=== PATIENT | male | born 1960 | race American Indian/Alaskan Native ===

== ENCOUNTER 2017-11-10 16:30 | Inpatient (IN) | payer MEDICARE ==
[2017-11-10] MEDS ORDERED: ZOFRAN ODT PO PRN (16:39)
[2017-11-10] MEDS ORDERED: TYLENOL PO PRN (16:39)
[2017-11-10] MEDS ORDERED: IMODIUM PO PRN (16:39)
[2017-11-10] MEDS ORDERED: ZOFRAN IV PRN (16:39)
[2017-11-10] MEDS ORDERED: ALUM-MAG HYDROX-SIMETH 200-200-20MG/5ML PO PRN (16:39)
[2017-11-10] MEDS ORDERED: DULCOLAX PR PRN (16:39)
[2017-11-10] MEDS ORDERED: SENOKOT PO PRN (16:39)
[2017-11-10] MEDS ORDERED: VISTARIL PO PRN (16:49)
[2017-11-10] MEDS ORDERED: CATAPRES PO PRN (16:49)
[2017-11-10] MEDS ORDERED: BENTYL PO PRN (16:49)
[2017-11-10] MEDS ORDERED: REQUIP PO PRN (16:49)
[2017-11-10] MEDS ORDERED: ROBAXIN PO PRN (16:49)
[2017-11-10] MEDS ORDERED: VISTARIL IM PRN (16:49)
[2017-11-10] MEDS ORDERED: ATIVAN IV ONE (17:05)
[2017-11-10] MEDS: LOVENOX SUB-Q SCH (17:30)
[2017-11-10] MEDS: NACL 0.9% 1000 ML 1,000 ML IV SCH (17:30)
[2017-11-10] MEDS ORDERED: HABITROL TD PRN (18:00)
[2017-11-10] MEDS: SUBUTEX SL SCH (18:13)
[2017-11-10 19:20] LABS: Mean Corpuscular HGB Conc 34 % (32-34); Mean Corpuscular Hemoglobin 32 pg (28-32); Mean Corpuscular Volume 94 fl (84-94); Platelet Count 251 K/mm3 (140-440); Red Blood Count 3.43 M/mm3 (3.65-5.03); Red Cell Distribution Width 14.5 % (13.2-15.2)
[2017-11-10 19:31] LABS: INR 1.11 (0.87-1.13)
[2017-11-10 19:49] LABS: Bilirubin,Urine NEG (Negative); Blood,Urine NEG (Negative); Color,Urine Amber (Yellow); Mucus,Urine 3+ /HPF; Urobilinogen,Urine < 2.0 mg/dL (<2.0)
[2017-11-10 19:57] LABS: Amphetamine Screen,Urine PRESUMPTIVE NEGATIVE; Benzodiazepines Screen,Urine PRESUMPTIVE NEGATIVE; Opiate Screen,Urine PRESUMPTIVE NEGATIVE
[2017-11-10 20:00] LABS: Alanine Aminotransferase 13 units/L (7-56); Albumin 3.7 g/dL (3.9-5); BUN/Creatinine Ratio 14; Blood Urea Nitrogen 14 mg/dL (9-20); Calcium 8.5 mg/dL (8.4-10.2); Hemolysis Index 0
[2017-11-10] MEDS ORDERED: VITAMIN B-1 100 MG, FOLVITE 1 MG, INFUVITE 10 ML in LACTATED RINGERS 1,000 ML IV ONE (20:00)
[2017-11-10 20:09] LABS: Cannabinoid Screen,Urine PRESUMPTIVE POSITIVE; Cocaine Screen,Urine PRESUMPTIVE POSITIVE; Methadone Screen,Urine PRESUMPTIVE POSITIVE
[2017-11-10] MEDS: DESYREL PO SCH (22:04)
[2017-11-11] MEDS: DESYREL PO SCH ×2 (00:45→22:50)
[2017-11-11] MEDS: SUBUTEX SL SCH ×2 (01:44→06:30)
--- NOTE | 2017-11-11 06:02 | Event Note ---
Date: 11/10/17 See dictated H/p in reports Mathadone withdrawal No comorbid factors
[2017-11-11] MEDS ORDERED: SODIUM CHLORIDE FLUSH SYRINGE 10 ML IV PRN (06:03)
[2017-11-11] MEDS ORDERED: TYLENOL PO PRN (06:03)
[2017-11-11] MEDS ORDERED: ZOFRAN IV PRN (06:03)
[2017-11-11] MEDS ORDERED: PHENERGAN PR PRN (06:03)
--- NOTE | 2017-11-11 06:46 | History and Physical Report ---
CHIEF COMPLAINT: Tremulousness and nervousness for 3-4 days. HISTORY OF PRESENT ILLNESS: A 57-year-old black male with dependence on methadone, who has been using up to 200 mg every morning of methadone, suddenly stopped using methadone 2 weeks ago cold turkey. Since then, the patient has been getting more nervous, tremulous, and restless. The patient has been using Percocet initially for his neck pain. He was using up to 90 tablets in a month. This was started on . After 2 or 3 years of Percocet, patient was changed to methadone. From the low dose of methadone, now patient is on methadone 200 mg everyday. The patient wanted to get off methadone and stop suddenly. The patient started having restlessness moderate tremors, sweating, and yawning. The patient also reports abdominal pain, chills, nausea, muscle aches, diarrhea, intense thirst, and weight loss. The patient is not homicidal. Not suicidal. The patient had a score of EDWAR is 17. The patient wants help with his withdrawal symptoms. Hence the admission. PAST MEDICAL HISTORY: Chronic pain secondary to C-spine surgery. No hypertension, no diabetes. PAST SURGICAL HISTORY: C-spine surgery. SOCIAL HISTORY: Does not smoke. Alcohol in moderation, very occasionally. Methadone 200 everyday. FAMILY HISTORY: Hypertension. REVIEW OF SYSTEMS: Significant for having diarrhea, intense thirst, weight loss, tremulousness, restlessness, sweating, and yawning. Otherwise, a 14-point review of systems negative. PHYSICAL EXAMINATION: GENERAL: A middle-aged male, cooperative during examination. States he feels better after being admitted and given IV fluids. VITAL SIGNS: Blood pressure is 126/82, temperature is 98.4, pulse is 59, respirations are 16, sats are 98%. HEENT: Unremarkable. Pupils equal and reactive. NECK: Supple, no lymphadenopathy, no thyromegaly. LUNGS: Clear to auscultation and percussion. Good air entry. CARDIOVASCULAR: S1, S2 heard. No gallop, no murmur, no rub. Apical impulse in left fifth intercostal space and midclavicular line. ABDOMEN: Soft and benign. No hepatosplenomegaly. No guarding, no rigidity. Hernial orifices are normal. EXTREMITIES: Good pedal pulses. No pedal edema. CENTRAL NERVOUS SYSTEM: The patient is very tremulous and nervous. Otherwise no focal deficits. SKIN: Normal. LABORATORY DATA: White count is 6100, H and H are 11.0 and 32.0. Albumin is 3.7. Urine is negative. Drug screen was positive for cocaine, marijuana, and methadone. ASSESSMENT AND PLAN: 1. Methadone dependence. The patient stopped 2 weeks ago cold turkey he says, but methadone is positive. Probably still in the half life of methadone, hence positive. The patient initiated on clonidine 0.1 q.12 p.r.n. for cold sweats, anxiety. Methocarbamol for muscle aches and dicyclomine for abdominal discomfort, ropinirole for restless legs, hydroxyzine for mild anxiety, hydroxyzine 50 for breakthrough anxiety. The patient is also started on Subutex taper 4 mg every 8 hours for 3 doses, then 2 mg every 8 hours for 3 doses and then 2 mg sublingual every 2 hours for 2 doses. Also, IV fluids. 2. Cocaine dependence. Continue the IV fluids and the same treatment of clonidine, methocarbamol, dicyclomine, ropinirole, and hydroxyzine. 3. Marijuana dependence. The patient counseled about it. 4. Deep venous thrombosis prophylaxis, Lovenox 40 mg subcutaneous daily, labs are normal. JOB# [id number] JAMESON/VASILE
[2017-11-11 06:59] LABS: Basophils % (Auto) 0.4 % (0.0-1.8); Eosinophils # (Auto) 0.1 K/mm3 (0.0-0.4); Eosinophils % (Auto) 1.9 % (0.0-4.3); Hematocrit 35.6 % (35.5-45.6); Hemoglobin 12.2 gm/dl (11.8-15.2); Lymphocytes # (Auto) 3.3 K/mm3 (1.2-5.4); Lymphocytes % (Auto) 45.1 % (13.4-35.0); Mean Corpuscular HGB Conc 34 % (32-34); Mean Corpuscular Hemoglobin 32 pg (28-32); Mean Corpuscular Volume 92 fl (84-94); Monocytes # (Auto) 0.5 K/mm3 (0.0-0.8); Monocytes % (Auto) 7.2 % (0.0-7.3); Platelet Count 262 K/mm3 (140-440); Red Blood Count 3.86 M/mm3 (3.65-5.03); Red Cell Distribution Width 14.9 % (13.2-15.2)
[2017-11-11 07:27] LABS: Alanine Aminotransferase 12 units/L (7-56); Albumin 3.3 g/dL (3.9-5); BUN/Creatinine Ratio 13; Blood Urea Nitrogen 12 mg/dL (9-20); Calcium 8.2 mg/dL (8.4-10.2); Hemolysis Index 8
[2017-11-11] MEDS ORDERED: K-DUR PO NR (07:42)
[2017-11-11] MEDS: VITAMIN B-1 PO SCH (09:23)
[2017-11-11] MEDS: PEPCID PO SCH ×2 (09:23→22:50)
[2017-11-11] MEDS: THERAGRAN Tab PO SCH (09:23)
[2017-11-11] MEDS: LOVENOX SUB-Q SCH (09:23)
[2017-11-11] MEDS: NACL 0.9% 1000 ML 1,000 ML IV SCH (09:27)
[2017-11-11] MEDS: SODIUM CHLORIDE FLUSH SYRINGE 10 ML IV SCH ×2 (09:37→22:52)
[2017-11-11] MEDS: FOLVITE PO SCH (09:38)
[2017-11-11] MEDS ORDERED: SUBUTEX SL ONE ×2 (10:00→17:30)
--- NOTE | 2017-11-11 11:52 | Progress Note ---
Assessment and Plan Assessment and plan: Patient is a 57 yo man with a history of chronic pain syndrome on large doses of Methodone who quit "cold turkey" per patient on October 30. He admits to using leftover percocet since then. He was direct admission to the [facility] under [facility] protocols. * UDS positive for methadone, cocaine and marijuana -Opiate withdrawal: continue Suboxone at 4mg, hold triation until tomorrow, d/w Melanin from [facility]. -Hypokalemia: replace potassium -Mild malnutrition: dietary supplements and 3 meals a day. -Poly substance abuse with cocaine, marijuana, methadone, his story doesn't add up bc he never mention using cocaine and why would he stop methadone and then go back to percocet when he was on Methadone for percocet addiction. -DVT prophylaxis: sq lovenox History Interval history: Patient was seen and examined. Follow-up on current diagnosis opiate withdrawal. Overnight uneventful. Patient denies any chest pain, shortness breath, nausea/vomiting or severe headaches. Imaging, nursing note, chart, labs and old chart reviewed. Discussed with patient. He is anxious especially before the next dose of Suboxone, will hold dose at 4mg today. Hospitalist Physical - Constitutional Vitals: Temp Pulse Resp BP Pulse Ox 97.7 F 56 L 16 118/82 100 11/11/17 08:00 11/11/17 09:55 11/11/17 09:55 11/11/17 08:00 11/11/17 09:55 Results - Labs CBC & Chem 7: 11/11/17 06:38 11/11/17 06:38 Labs: Laboratory Last Values WBC 7.4 K/mm3 (4.5-11.0) 11/11/17 06:38 RBC 3.86 M/mm3 (3.65-5.03) 11/11/17 06:38 Hgb 12.2 gm/dl (11.8-15.2) 11/11/17 06:38 Hct 35.6 % (35.5-45.6) 11/11/17 06:38 MCV 92 fl (84-94) 11/11/17 06:38 MCH 32 pg (28-32) 11/11/17 06:38 MCHC 34 % (32-34) 11/11/17 06:38 RDW 14.9 % (13.2-15.2) 11/11/17 06:38 Plt Count 262 K/mm3 (140-440) 11/11/17 06:38 Lymph % (Auto) 45.1 % (13.4-35.0) H 11/11/17 06:38 [place] % (Auto) 7.2 % (0.0-7.3) 11/11/17 06:38 Eos % (Auto) 1.9 % (0.0-4.3) 11/11/17 06:38 Baso % (Auto) 0.4 % (0.0-1.8) 11/11/17 06:38 Lymph # 3.3 K/mm3 (1.2-5.4) 11/11/17 06:38 [place] # 0.5 K/mm3 (0.0-0.8) 11/11/17 06:38 Eos # 0.1 K/mm3 (0.0-0.4) 11/11/17 06:38 Baso # 0.0 K/mm3 (0.0-0.1) 11/11/17 06:38 Seg Neutrophils % 45.4 % (40.0-70.0) 11/11/17 06:38 Seg Neutrophils # 3.4 K/mm3 (1.8-7.7) 11/11/17 06:38 PT 14.9 Sec. (12.2-14.9) 11/10/17 18:40 INR 1.11 (0.87-1.13) 11/10/17 18:40 Sodium 141 mmol/L (137-145) 11/11/17 06:38 Potassium 3.3 mmol/L (3.6-5.0) L 11/11/17 06:38 Chloride 104.1 mmol/L (98-107) 11/11/17 06:38 Carbon Dioxide 24 mmol/L (22-30) 11/11/17 06:38 Anion Gap 16 mmol/L 11/11/17 06:38 BUN 12 mg/dL (9-20) 11/11/17 06:38 Creatinine 0.9 mg/dL (0.8-1.5) 11/11/17 06:38 Estimated GFR > 60 ml/min 11/11/17 06:38 BUN/Creatinine Ratio 13 % 11/11/17 06:38 Glucose 92 mg/dL (75-100) 11/11/17 06:38 Hemoglobin A1c 5.5 % (4-6) 11/11/17 06:38 Calcium 8.2 mg/dL (8.4-10.2) L 11/11/17 06:38 Total Bilirubin 0.60 mg/dL (0.1-1.2) 11/11/17 06:38 AST 12 units/L (5-40) 11/11/17 06:38 ALT 12 units/L (7-56) 11/11/17 06:38 Alkaline Phosphatase 57 units/L (35-129) 11/11/17 06:38 Total Protein 5.9 g/dL (6.3-8.2) L 11/11/17 06:38 Albumin 3.3 g/dL (3.9-5) L 11/11/17 06:38 Albumin/Globulin Ratio 1.3 % 11/11/17 06:38 Amylase 66 units/L (27-131) 11/10/17 18:40 Lipase 23 units/L (13-60) 11/10/17 18:40 Urine Color [place] (Yellow) 11/10/17 19:17 Urine Turbidity Clear (Clear) 11/10/17 19:17 Urine pH 6.0 (5.0-7.0) 11/10/17 19:17 Ur Specific [place] 1.025 (1.003-1.030) 11/10/17 19:17 Urine Protein 30 mg/dl mg/dL (Negative) 11/10/17 19:17 Urine Glucose (UA) Neg mg/dL (Negative) 11/10/17 19:17 Urine Ketones Tr mg/dL (Negative) 11/10/17 19:17 Urine Blood Neg (Negative) 11/10/17 19:17 Urine Nitrite Neg (Negative) 11/10/17 19:17 Urine Bilirubin Neg (Negative) 11/10/17 19:17 Urine Urobilinogen < 2.0 mg/dL (<2.0) 11/10/17 19:17 Ur Leukocyte Esterase Neg (Negative) 11/10/17 19:17 Urine WBC (Auto) 1.0 /HPF (0.0-6.0) 11/10/17 19:17 Urine RBC (Auto) 8.0 /HPF (0.0-6.0) 11/10/17 19:17 Urine Mucus 3+ /HPF 11/10/17 19:17 Urine Opiates Screen Presumptive negative 11/10/17 19:17 Urine Methadone Screen Presumptive positive 11/10/17 19:17 Ur Barbiturates Screen Presumptive negative 11/10/17 19:17 Ur Phencyclidine Scrn Presumptive negative 11/10/17 19:17 Ur Amphetamines Screen Presumptive negative 11/10/17 19:17 U Benzodiazepines Scrn Presumptive negative 11/10/17 19:17 Urine Cocaine Screen Presumptive positive 11/10/17 19:17 U Marijuana (THC) Screen Presumptive positive 11/10/17 19:17 Drugs of Abuse Note Disclamer 11/10/17 19:17 Plasma/Serum Alcohol < 0.01 % (0-0.07) 11/10/17 18:40
[2017-11-11] MEDS ORDERED: SUBUTEX SL SCH (22:00)
[2017-11-12] MEDS ORDERED: SUBUTEX SL SCH ×2 (01:30→22:00)
[2017-11-12] MEDS: NACL 0.9% 1000 ML 1,000 ML IV SCH ×2 (01:42→22:03)
[2017-11-12] MEDS: THERAGRAN Tab PO SCH (09:42)
[2017-11-12] MEDS: SUBUTEX SL SCH ×2 (09:42→17:39)
[2017-11-12] MEDS: PEPCID PO SCH ×2 (09:42→21:57)
[2017-11-12] MEDS: VITAMIN B-1 PO SCH (09:42)
[2017-11-12] MEDS: FOLVITE PO SCH (09:42)
[2017-11-12] MEDS: SODIUM CHLORIDE FLUSH SYRINGE 10 ML IV SCH ×2 (09:43→21:57)
[2017-11-12] MEDS: LOVENOX SUB-Q SCH (09:43)
--- NOTE | 2017-11-12 14:27 | Progress Note ---
Assessment and Plan Assessment and plan: Patient is a 57 yo man with a history of chronic pain syndrome on large doses of Methodone who quit "cold turkey" per patient on October 30. He admits to using leftover percocet since then. He was direct admission to the [facility]ization Unit under [facility] protocols. * UDS positive for methadone, cocaine and marijuana -Opiate withdrawal: continue Suboxone titration -Hypokalemia: replace potassium -Mild malnutrition: dietary supplements and 3 meals a day. -Poly substance abuse with cocaine, marijuana, methadone, his story doesn't add up bc he never mention using cocaine and why would he stop methadone and then go back to percocet when he was on Methadone for percocet addiction. -DVT prophylaxis: sq lovenox Anticipate discharge in 1-2 days, once protocol ends. Patient will be setup with outpatient provider per [facility] History Interval history: Patient was seen and examined. Follow-up on current diagnosis opiate withdrawal. Overnight uneventful. Patient denies any chest pain, shortness breath, nausea/vomiting or severe headaches. Imaging, nursing note, chart, labs and old chart reviewed. Discussed with patient. He is anxious especially before the next dose of Suboxone, will hold dose at 4mg today. Hospitalist Physical - Physical exam Narrative exam: GEN: WDWN, NAD, Awake, Alert, Orientated x 3 HEENT: NCAT, EOMI, PERRL, OP Clear NECK: supple, no adenopathy, no thyromegaly, no JVD CVS/HEART: RRR, normal S1S2, pulses present bilaterally CHEST/LUNGS: CTA B, Symmetrical chest expansion, good air entry bilaterally GI/Abdomen: soft, NTND, good bowel sounds, no guarding or rebound /Bladder: no suprapubic tenderness, no CVA or paraspinal tenderness EXT/Skin: no c/c/e, no obvious rash MSK: FROM x 4 Neuro: CN 2-12 grossly intact, no new focal deficits. mild tremor Psych: calm at present - Constitutional Vitals: Temp Pulse Resp BP Pulse Ox 98.7 F 55 L 18 111/74 99 11/12/17 11:32 11/12/17 11:32 11/12/17 11:32 11/12/17 11:32 11/12/17 11:32 Results - Labs CBC & Chem 7: 11/11/17 06:38 11/11/17 06:38 Labs: Laboratory Last Values WBC 7.4 K/mm3 (4.5-11.0) 11/11/17 06:38 RBC 3.86 M/mm3 (3.65-5.03) 11/11/17 06:38 Hgb 12.2 gm/dl (11.8-15.2) 11/11/17 06:38 Hct 35.6 % (35.5-45.6) 11/11/17 06:38 MCV 92 fl (84-94) 11/11/17 06:38 MCH 32 pg (28-32) 11/11/17 06:38 MCHC 34 % (32-34) 11/11/17 06:38 RDW 14.9 % (13.2-15.2) 11/11/17 06:38 Plt Count 262 K/mm3 (140-440) 11/11/17 06:38 Lymph % (Auto) 45.1 % (13.4-35.0) H 11/11/17 06:38 [place] % (Auto) 7.2 % (0.0-7.3) 11/11/17 06:38 Eos % (Auto) 1.9 % (0.0-4.3) 11/11/17 06:38 Baso % (Auto) 0.4 % (0.0-1.8) 11/11/17 06:38 Lymph # 3.3 K/mm3 (1.2-5.4) 11/11/17 06:38 [place] # 0.5 K/mm3 (0.0-0.8) 11/11/17 06:38 Eos # 0.1 K/mm3 (0.0-0.4) 11/11/17 06:38 Baso # 0.0 K/mm3 (0.0-0.1) 11/11/17 06:38 Seg Neutrophils % 45.4 % (40.0-70.0) 11/11/17 06:38 Seg Neutrophils # 3.4 K/mm3 (1.8-7.7) 11/11/17 06:38 PT 14.9 Sec. (12.2-14.9) 11/10/17 18:40 INR 1.11 (0.87-1.13) 11/10/17 18:40 Sodium 141 mmol/L (137-145) 11/11/17 06:38 Potassium 3.3 mmol/L (3.6-5.0) L 11/11/17 06:38 Chloride 104.1 mmol/L (98-107) 11/11/17 06:38 Carbon Dioxide 24 mmol/L (22-30) 11/11/17 06:38 Anion Gap 16 mmol/L 11/11/17 06:38 BUN 12 mg/dL (9-20) 11/11/17 06:38 Creatinine 0.9 mg/dL (0.8-1.5) 11/11/17 06:38 Estimated GFR > 60 ml/min 11/11/17 06:38 BUN/Creatinine Ratio 13 % 11/11/17 06:38 Glucose 92 mg/dL (75-100) 11/11/17 06:38 Hemoglobin A1c 5.5 % (4-6) 11/11/17 06:38 Calcium 8.2 mg/dL (8.4-10.2) L 11/11/17 06:38 Total Bilirubin 0.60 mg/dL (0.1-1.2) 11/11/17 06:38 AST 12 units/L (5-40) 11/11/17 06:38 ALT 12 units/L (7-56) 11/11/17 06:38 Alkaline Phosphatase 57 units/L (35-129) 11/11/17 06:38 Total Protein 5.9 g/dL (6.3-8.2) L 11/11/17 06:38 Albumin 3.3 g/dL (3.9-5) L 11/11/17 06:38 Albumin/Globulin Ratio 1.3 % 11/11/17 06:38 Amylase 66 units/L (27-131) 11/10/17 18:40 Lipase 23 units/L (13-60) 11/10/17 18:40 Urine Color [place] (Yellow) 11/10/17 19:17 Urine Turbidity Clear (Clear) 11/10/17 19:17 Urine pH 6.0 (5.0-7.0) 11/10/17 19:17 Ur Specific [place] 1.025 (1.003-1.030) 11/10/17 19:17 Urine Protein 30 mg/dl mg/dL (Negative) 11/10/17 19:17 Urine Glucose (UA) Neg mg/dL (Negative) 11/10/17 19:17 Urine Ketones Tr mg/dL (Negative) 11/10/17 19:17 Urine Blood Neg (Negative) 11/10/17 19:17 Urine Nitrite Neg (Negative) 11/10/17 19:17 Urine Bilirubin Neg (Negative) 11/10/17 19:17 Urine Urobilinogen < 2.0 mg/dL (<2.0) 11/10/17 19:17 Ur Leukocyte Esterase Neg (Negative) 11/10/17 19:17 Urine WBC (Auto) 1.0 /HPF (0.0-6.0) 11/10/17 19:17 Urine RBC (Auto) 8.0 /HPF (0.0-6.0) 11/10/17 19:17 Urine Mucus 3+ /HPF 11/10/17 19:17 Urine Opiates Screen Presumptive negative 11/10/17 19:17 Urine Methadone Screen Presumptive positive 11/10/17 19:17 Ur Barbiturates Screen Presumptive negative 11/10/17 19:17 Ur Phencyclidine Scrn Presumptive negative 11/10/17 19:17 Ur Amphetamines Screen Presumptive negative 11/10/17 19:17 U Benzodiazepines Scrn Presumptive negative 11/10/17 19:17 Urine Cocaine Screen Presumptive positive 11/10/17 19:17 U Marijuana (THC) Screen Presumptive positive 11/10/17 19:17 Drugs of Abuse Note Disclamer 11/10/17 19:17 Plasma/Serum Alcohol < 0.01 % (0-0.07) 11/10/17 18:40
[2017-11-12] MEDS: DESYREL PO SCH (21:57)
[2017-11-13] MEDS: SUBUTEX SL SCH (01:47)
[2017-11-13] MEDS: LOVENOX SUB-Q SCH (10:14)
[2017-11-13] MEDS: FOLVITE PO SCH (10:14)
[2017-11-13] MEDS: SODIUM CHLORIDE FLUSH SYRINGE 10 ML IV SCH (10:14)
[2017-11-13] MEDS: THERAGRAN Tab PO SCH (10:14)
[2017-11-13] MEDS: PEPCID PO SCH (10:14)
[2017-11-13] MEDS: VITAMIN B-1 PO SCH (10:14)
--- NOTE | 2017-11-13 12:24 | Discharge Summary ---
Providers - Providers Date of Admission: 11/10/17 17:02 Date of discharge: 11/13/17 Attending physician: FABIOLA WATKINS 11/11/17 Consult to Case Management [CONS] Routine Services Needed at Discharge: Front Desk Admin Notified:: [email or web address] Phone number called:: [phone] Was contact made?: Yes If yes, spoke with:: Gisselle Time called:: 10:00 Primary care physician: [employer] Hospitalization Condition: Stable Hospital course: Patient is a 57 yo man with a history of chronic pain syndrome on large doses of Methodone who quit "cold turkey" per patient on October 30. He admits to using leftover percocet since then. He was direct admission to the [facility] Unit under [facility] protocols. * UDS positive for methadone, cocaine and marijuana -Opiate withdrawal: continue Suboxone titration -Hypokalemia: replace potassium -Mild malnutrition: dietary supplements and 3 meals a day. -Poly substance abuse with cocaine, marijuana, methadone, his story doesn't really add up because he never mentions using cocaine and why would he stop methadone, then go back to percocet when he was on Methadone for percocet addiction in the first place. -DVT prophylaxis: sq lovenox Anticipate discharge today once Suboxone protocol ends Patient setup with outpatient provider per [facility] on Wednesday at 10am. Disposition: TO HOME OR SELFCARE Time spent for discharge: 33 minutes Core Measure Documentation - Palliative Care Palliative Care/ Comfort Measures: Not Applicable - Core Measures Any of the following diagnoses?: none - VTE Discharge Requirements Deep Vein Thrombosis/Pulmonary Embolism Present on Admission: No Has pt received <5 days of overlap therapy or INR<2.0: No Anticoagulant overlap therapy prescribed at discharge: No Contraindication No Overlap Therapy order at DC: Not Indicated Exam - Physical Exam Narrative exam: GEN: WDWN, NAD, Awake, Alert, Orientated x 3 HEENT: NCAT, EOMI, PERRL, OP Clear NECK: supple, no adenopathy, no thyromegaly, no JVD CVS/HEART: Regular mac at rest, normal S1S2, pulses present bilaterally CHEST/LUNGS: CTA B, Symmetrical chest expansion, good air entry bilaterally GI/Abdomen: soft, NTND, "nepalese cheese surgical appearance" with old heal surgeries wounds and multiple diffuse hernias, good bowel sounds, no guarding or rebound /Bladder: no suprapubic tenderness, no CVA or paraspinal tenderness EXT/Skin: no c/c/e, no obvious rash MSK: FROM x 4 Neuro: CN 2-12 grossly intact, no new focal deficits. no tremor, observed normal gait Psych: calm at present - Constitutional Vitals: Temp Pulse Resp BP Pulse Ox 98.5 F 50 L 20 140/93 96 11/13/17 08:04 11/13/17 08:04 11/13/17 10:00 11/13/17 08:04 11/13/17 10:00 Plan Activity: other (no strenous activity) Diet: low salt Additional Instructions: keep your appointment on Wednesday Follow up with: PRIMARY CARE, [Primary Care Provider] - 7 Days Prescriptions: traZODone [Desyrel] 50 mg PO QHS #30 tablet Acetaminophen [Acetaminophen TAB] 650 mg PO Q4H PRN #30 tablet PRN Reason: Pain , Severe (7-10) Thiamine [Vitamin B-1] 100 mg PO QDAY #30 tablet
[2017-11-13 13:40] VITALS: BP 129/88
[2017-11-13] MEDS ORDERED: SUBUTEX SL SCH (14:00)
== END 2017-11-13 14:05 | disposition home or self-care (01) | DRG 896 ==
LOC: UNDOADMIN 16:30 → 2B-ACE 16:30 → MSU 17:02
PROVIDERS: ADMIT Internal Medicine; ATTEND Internal Medicine
DX: F11.23 Opioid dependence with withdrawal (principal); G93.40 Encephalopathy, unspecified; E44.1 Mild protein-calorie malnutrition; G89.4 Chronic pain syndrome; E87.6 Hypokalemia; F19.10 Other psychoactive substance abuse, uncomplicated; F14.10 Cocaine abuse, uncomplicated; F12.10 Cannabis abuse, uncomplicated; Z82.49 Family history of ischemic heart disease and other diseases of the circulatory system; Z68.27 Body mass index [BMI] 27.0-27.9, adult
CPT/HCPCS: 36415; 80053; 80307; 80320; 81001; 82150; 83036; 83690; 85025; 85027; 85610; G0480; J1650; J2060; J3410; J3411; J7030; J7120; Q0177